=== PATIENT | female | born 1945 | race Caucasian/White ===

== ENCOUNTER 2017-10-14 10:33 | Outpatient (CLI) | payer MEDICARE | END 2017-10-14 10:34 | disposition home or self-care (01) | LOC: BICMAMMO 10:33 | PROVIDERS: ATTEND Internal Medicine Hematology & Oncology | DX: Z08 Encounter for follow-up examination after completed treatment for malignant neoplasm (principal); L90.5 Scar conditions and fibrosis of skin; Z85.3 Personal history of malignant neoplasm of breast | CPT/HCPCS: 77066; G0279 ==

== ENCOUNTER 2018-04-15 13:27 | Outpatient (CLI) | payer MEDICARE ==
--- NOTE | 2018-04-15 14:35 | ULT ---
RIGHT CHEST WALL ULTRASOUND: History: Lump on the right chest wall. Patient had an abscess drained recently in this region. Technique: Multiplanar grayscale and color doppler images were obtained in a limited ultrasound of th e soft tissues of the right chest wall. FINDINGS: At the area of palpable abnormality there is a mixed predominately hypoechoic region. There are areas of anechoic nature of this region and this likely represents a complex residual fluid collection at the region where the previous abscess was drained. This measures 1.6 x 0.9 cm in size. This demonstr ates increased through transmission. IMPRESSION: Small residual fluid collection at the area of abscess drainage along the right chest wall. POS: [facility]
--- NOTE | 2018-04-15 14:40 | RAD ---
RIGHT RIBS THREE VIEWS: Indications: Cutaneous abscess right chest. FINDINGS: The right lung appears aerated and clear. The visualized right ribs appear unremarkable. IMPRESSION: No acute findings. POS: [facility]
--- NOTE | 2018-04-15 14:52 | RAD ---
CHEST TWO VIEWS: History: Breast cancer. Tobacco abuse. Comparison: 01-29-17 FINDINGS: Cardiac silhouette and pulmonary vasculature are unremarkable. Chronic interstitial worsening at the posterior lung bases is again demonstrated. Mediastinum is midline allowing for rightward convex curv ature of the thoracic spine. No confluent airspace consolidation, pneumothorax or pleural fluid. IMPRESSION: Chronic type findings are stable. No active cardiopulmonary abnormalities are demonstrated. POS: [facility]
== END 2018-04-15 13:28 | disposition home or self-care (01) ==
LOC: BICRAD 13:27
PROVIDERS: ATTEND Family Medicine
DX: L02.213 Cutaneous abscess of chest wall (principal); E11.40 Type 2 diabetes mellitus with diabetic neuropathy, unspecified; Z72.0 Tobacco use; Z85.3 Personal history of malignant neoplasm of breast
CPT/HCPCS: 71046; 76999

== ENCOUNTER 2018-10-20 11:27 | Outpatient (CLI) | payer MEDICARE, OTHER ==
--- NOTE | 2018-10-20 13:14 | MMO ---
Bilateral MAMMO Bilat Screen [facility]. CLINICAL HISTORY: Patient is 72 years old and is seen for screening. The patient has no family history of breast cancer. The patient has a history of Ultrasound Guided Core Biopsy procedure revealed invasive ductal right breast carcinoma in October, and Segmental Mastectomy procedure revealed invasive ductal right breast carcinoma in Sep, 2012. The patient has a history of right Ultrasound Guided Core Biopsy in Sep, 2012 - malignant and right Lumpectomy in Sep, 2012 - malignant. VIEWS: The views performed were: bilateral craniocaudal with tomosynthesis and bilateral mediolateral oblique with tomosynthesis. FILMS COMPARED: The present examination has been compared to prior imaging studies performed at [facility] on 09/06/2014, 10/03/2015, 10/10/2016 and 10/14/2017. MAMMOGRAM FINDINGS: There are scattered fibroglandular densities. There is a stable area of architectural distortion with associated calcifications and post-surgical scar seen in the right breast. There are no suspicious masses, suspicious calcifications, or new areas of architectural distortion. IMPRESSION: A ROUTINE FOLLOW-UP MAMMOGRAM IN 1 YEAR IS RECOMMENDED. THE RESULTS OF THIS EXAM WERE SENT TO THE PATIENT. ACR BI-RADS Category 2 - Benign finding MAMMOGRAPHY NOTE: 1. A negative mammogram report should not delay a biopsy if a dominant of clinically suspicious mass is present. 2. Approximately 10% to 15% of breast cancers are not detected by mammography. 3. Adenosis and dense breasts may obscure an underlying neoplasm.
== END 2018-10-20 11:28 | disposition home or self-care (01) ==
LOC: BICMAMMO 11:27
PROVIDERS: ATTEND Internal Medicine Hematology & Oncology
DX: Z12.31 Encounter for screening mammogram for malignant neoplasm of breast (principal); Z85.3 Personal history of malignant neoplasm of breast; Z90.11 Acquired absence of right breast and nipple; Z98.890 Other specified postprocedural states
CPT/HCPCS: 77063; 77067

== ENCOUNTER 2020-04-12 12:40 | Outpatient (CLI) | payer MEDICARE, OTHER ==
--- NOTE | 2020-04-12 14:11 | RAD ---
Frontal radiograph chest: 04/12/2020 COMPARISON: 04/15/2018 HISTORY: Abnormal finding of the lung field FINDINGS: There is stable mid thoracic spine dextroscoliosis. Diffuse increased linear interstitial d ensity noted, right greater than left, similar when compared to the 2018 exam. Questionable stable reticulonodular density noted within the lateral aspect of the mid right lung zone. Heart and mediast inal contours are stable. No focal consolidation or alveolar edema IMPRESSION: Stable appearance of the chest as above.
--- NOTE | 2020-04-12 14:23 | RAD ---
Lumbar spine 2 views: 04/12/2020 COMPARISON: None HISTORY: Stenosis, scoliosis FINDINGS: There is severe levoscoliosis centered at the thoracolumbar junction, limiting detailed ass essment at the thoracolumbar junction for fracture. Lateral imaging demonstrates anterolisthesis at L4-5 measuring approximately 1.1 cm. There is atherosclerotic calcification of the abdominal aorta. T here is multilevel prominent degenerative endplate change and disc space narrowing with lateral osteophyte formation. There is multilevel lower lumbar spine facet hypertrophy. IMPRESSION: Severe levoscoliosis at the thoracolumbar junction with multilevel degenerative change. I f there are radicular symptoms, MRI suggested.
--- NOTE | 2020-04-12 14:29 | MMO ---
Bilateral MAMMO Bilat Screen [facility]. CLINICAL HISTORY: Patient is 74 years old and is seen for screening. The patient has no family history of breast cancer. The patient has a history of Ultrasound guided core biopsy procedure revealed invasive ductal right breast carcinoma in October, and Segmental mastectomy. procedure revealed invasive ductal right breast carcinoma in Sep, 2012. The patient has a history of right Ultrasound Guided Core Biopsy in Sep, 2012 - malignant and right Lumpectomy in Sep, 2012 - malignant. VIEWS: The views performed were: bilateral craniocaudal with tomosynthesis and bilateral mediolateral oblique with tomosynthesis. FILMS COMPARED: The present examination has been compared to prior imaging studies performed at [facility] on 10/03/2015, 10/10/2016, 10/14/2017 and 10/20/2018. This study has been interpreted with the assistance of computer-aided detection. MAMMOGRAM FINDINGS: There are scattered fibroglandular densities. Benign calcifications are noted bilaterally. There are stable right post-operative changes. There are no suspicious masses, suspicious calcifications, or new areas of architectural distortion. IMPRESSION: THERE IS NO MAMMOGRAPHIC EVIDENCE OF MALIGNANCY. A ROUTINE FOLLOW-UP MAMMOGRAM IN 1 YEAR IS RECOMMENDED. THE RESULTS OF THIS EXAM WERE SENT TO THE PATIENT. ACR BI-RADS Category 2 - Benign finding MAMMOGRAPHY NOTE: 1. A negative mammogram report should not delay a biopsy if a dominant of clinically suspicious mass is present. 2. Approximately 10% to 15% of breast cancers are not detected by mammography. 3. Adenosis and dense breasts may obscure an underlying neoplasm. Reported by: DMITRIY CALABRESE MD Electonically Signed: [id number]
--- NOTE | 2020-04-12 18:52 | RAD ---
AP PELVIS: Date: 04/12/2020 HISTORY: Pelvic pain. FINDINGS: Arthritic changes of the lower lumbar spine are present. Bones are demineralized. Pelvic ring appears intact without evidence of fracture. Fairly dense area of ossification is seen in the right buttocks region. This was present on the previous 2015 exam. Vascular calcifications are noted. IMPRESSION: No acute findings. POS: [facility]
== END 2020-04-12 12:41 | disposition home or self-care (01) ==
LOC: BICMAMMO 12:40
PROVIDERS: ATTEND Family Medicine
DX: Z12.31 Encounter for screening mammogram for malignant neoplasm of breast (principal); M48.061 Spinal stenosis, lumbar region without neurogenic claudication; M41.85 Other forms of scoliosis, thoracolumbar region; M47.816 Spondylosis without myelopathy or radiculopathy, lumbar region; Z85.3 Personal history of malignant neoplasm of breast; Z90.11 Acquired absence of right breast and nipple; Z98.890 Other specified postprocedural states
CPT/HCPCS: 71045; 72100; 72170; 77063; 77067

== ENCOUNTER 2020-12-25 12:09 | Outpatient (CLI) | payer MEDICARE, OTHER ==
[2020-12-25] MEDS ORDERED: Magnevist 469MG/ML 20 ML VIAL ONE (15:24)
== END 2020-12-25 12:10 | disposition home or self-care (01) ==
LOC: BICMRI 12:09
PROVIDERS: ATTEND Psychiatry & Neurology Neurology
DX: R27.0 Ataxia, unspecified (principal); C79.31 Secondary malignant neoplasm of brain; G93.6 Cerebral edema; M47.812 Spondylosis without myelopathy or radiculopathy, cervical region
CPT/HCPCS: 70553; 72141; 82565; A9579

== ENCOUNTER → 2021-01-10 | Day surgery (SDC) | payer MEDICARE, OTHER ==
[2021-01-09 14:46] VITALS: BMI 26.5
[2021-01-10 09:41] LABS: INR-International Normal Ratio 0.9; PTT 24.5 sec (22.9-36.1)
== END ==
LOC: CT 09:00
PROVIDERS: ATTEND Internal Medicine Hematology & Oncology
PROC: 0BBF3ZX Excision of Right Lower Lung Lobe, Percutaneous Approach, Diagnostic (ICD-10-PCS; principal; 2021-01-10)
DX: J84.10 Pulmonary fibrosis, unspecified (principal); J85.0 Gangrene and necrosis of lung; E27.8 Other specified disorders of adrenal gland; E11.9 Type 2 diabetes mellitus without complications; I10 Essential (primary) hypertension; E89.0 Postprocedural hypothyroidism; F17.200 Nicotine dependence, unspecified, uncomplicated; C80.1 Malignant (primary) neoplasm, unspecified; C79.31 Secondary malignant neoplasm of brain; M85.80 Other specified disorders of bone density and structure, unspecified site; Z85.3 Personal history of malignant neoplasm of breast; Z79.810 Long term (current) use of selective estrogen receptor modulators (SERMs); Z79.84 Long term (current) use of oral hypoglycemic drugs; Z79.899 Other long term (current) drug therapy; Z88.0 Allergy status to penicillin
CPT/HCPCS: 32408; 71045; 77012; 85610; 85730; 88305; 88312; 88333; 88334

== ENCOUNTER 2021-01-24 11:35 | Outpatient (CLI) | payer MEDICARE, OTHER ==
[2021-01-25 00:50] LABS: SARS-CoV-2 PCR by NAA Not Detected (NotDetected)
== END 2021-01-24 11:36 | disposition home or self-care (01) ==
LOC: LABBT 11:35
PROVIDERS: ATTEND Internal Medicine Hematology & Oncology
DX: Z01.812 Encounter for preprocedural laboratory examination (principal); C50.411 Malignant neoplasm of upper-outer quadrant of right female breast; R91.8 Other nonspecific abnormal finding of lung field; Z20.822 Contact with and (suspected) exposure to COVID-19
CPT/HCPCS: U0003; U0005

== ENCOUNTER 2021-01-29 09:06 | Day surgery (SDC) | payer MEDICARE, OTHER ==
[2021-01-26 12:53] VITALS: BMI 26.3
[2021-01-29 12:35] VITALS: BP 92/59; TEMP 98.5
== END 2021-01-29 14:12 | disposition home or self-care (01) ==
LOC: CT 09:06
PROVIDERS: ATTEND Internal Medicine Hematology & Oncology
PROC: 0BBF3ZX Excision of Right Lower Lung Lobe, Percutaneous Approach, Diagnostic (ICD-10-PCS; principal; 2021-01-29)
DX: C34.31 Malignant neoplasm of lower lobe, right bronchus or lung (principal); E11.9 Type 2 diabetes mellitus without complications; I10 Essential (primary) hypertension; F17.200 Nicotine dependence, unspecified, uncomplicated; E03.9 Hypothyroidism, unspecified; M85.80 Other specified disorders of bone density and structure, unspecified site; C79.31 Secondary malignant neoplasm of brain; C79.70 Secondary malignant neoplasm of unspecified adrenal gland; Z85.3 Personal history of malignant neoplasm of breast; Z79.810 Long term (current) use of selective estrogen receptor modulators (SERMs); Z79.84 Long term (current) use of oral hypoglycemic drugs; Z79.899 Other long term (current) drug therapy; Z88.0 Allergy status to penicillin
CPT/HCPCS: 32408; 71045; 77012; 88305; 88333; 88334; 88341; 88342